=== PATIENT | male | born 1990 | race Caucasian/White ===

== ENCOUNTER 2020-07-08 16:23 | Emergency (ER) | payer OTHER ==
--- NOTE | 2020-07-08 17:07 | RAD REPORT ---
EXAM DESCRIPTION: CT - C[facility]CSP[facility]OC - 07/08/2020 4:46 pm CLINICAL HISTORY: PAIN, neck trauma, possible anoxic injury COMPARISON: No comparisons TECHNIQUE: Axial 5 mm thick images of the head were obtained. Axial 2 mm thick images of the cervic al spine were obtained with sagittal and coronal reconstruction images generated and reviewed. All CT scans are performed using dose optimization technique as appropriate and may include automated exposure control or mA/KV adjustment according to patient size. FINDINGS: No cerebral edema. Ferreira matter - white matter junction is preserved. No suspicion for anox ic brain injury. No hemorrhage, mass or edema. No acute infarction changes seen. No extra-axial fluid collections. Mastoid air cells and paranasal sinuses are clear. No globe or orbit abnormality seen. Cervical body height and alignment are normal. No disk space narrowing. No fracture or acute bony abn ormality. Central canal detail is inherently limited. No paraspinal mass or hematoma. Trace amount of congestion or edema is seen in the subcutaneous fatty tissues superficial to the platysma anterior neck. IMPRESSION: Negative CT head examination for acute or significant finding. Negative CT cervical spine examination for acute or significant finding.
--- NOTE | 2020-07-08 17:37 | ER ---
Nurse's Notes [facility] Name: Rule Barrientos Age: 30 yrs Sex: Male : 1990 Arrival Date: 07/08/2020 Time: 16:27 Bed 23 Private MD: Diagnosis: Neck pain;Hanging;Suicide attempt Presentation: 07/08 16:30 Chief complaint: EMS states: BIBA: pt attempted suicide by hanging with a bedsheet. Pt ks7 c/o cervical neck pain 5/10. Pt placed in c-collar by assisted. aaox4. Coronavirus screen: Client denies travel out of the [place] in the last 14 days. At this time, the client does not indicate any symptoms associated with coronavirus-19. The client reports previous COVID testing was negative. Date of collection: July 09, 2020. Ebola Screen: Patient negative for fever greater than or equal to 101.5 degrees Fahrenheit, and additional compatible Ebola Virus Disease symptoms Patient denies exposure to infectious person. Patient denies travel to an Ebola-affected area in the 21 days before illness onset. Initial Sepsis Screen: Does the patient meet any 2 criteria? No. Patient's initial sepsis screen is negative. Does the patient have a suspected source of infection? No. Patient's initial sepsis screen is negative. Risk Assessment: Do you want to hurt yourself or someone else? Patient reports desire/thoughts of hurting themselves or someone else. Provider notified. Other: pt with hx of depression and past suicide attempt, attempted to hang himself with a sheet approx 1515 today. Onset of symptoms was July 08, 2020. Care prior to arrival: c-collar. Mechanism of Injury: Hanging by bedsheet Hanging details: in assisted. pt states he had LOC, pt kneeled with sheet wrapped around neck, found on ground breathing, by assisted staff. 16:30 Method Of Arrival: EMS: [facility] ks7 16:30 Acuity: EDWIGE 3 ks7 Triage Assessment: 16:37 General: Appears in no apparent distress. Behavior is cooperative, flat. Pain: ks7 Complains of pain in neck and back of neck Pain currently is 5 out of 10 on a pain scale. Quality of pain is described as aching, tender, Pain began 1 hour ago. Is continuous, Alleviated by rest, Aggravated by repositioning, palpation. Neuro: No deficits noted. Musculoskeletal: Tenderness present in neck and back of neck Reports pain in neck and back of neck. Historical: - Allergies: 16:37 No Known Allergies; ks7 - Home Meds: 16:37 Prozac Oral for Major Depressive Disorder [Active]; ks7 - PMHx: 16:37 Depression; ks7 - PSHx: 16:37 None; ks7 - Immunization history:: Adult Immunizations unknown. - Social history:: Smoking status: Patient denies any tobacco usage or history of. Screenin:40 Abuse screen: Denies threats or abuse. Denies injuries from another. Nutritional ks7 screening: No deficits noted. Tuberculosis screening: No symptoms or risk factors identified. Fall Risk None identified. Assessment: 16:40 Reassessment: see triage assessment. General: Appears in no apparent distress. Behavior ks7 is cooperative. 17:55 Reassessment: Patient appears in no apparent distress at this time. Patient and/or iw family updated on plan of care and expected duration. Pain level reassessed. Patient is alert, oriented x 3, equal unlabored respirations, skin warm/dry/pink. Patient states feeling better. Patient states symptoms have improved. Vital Signs: 16:28 BP 148 / 86; Pulse 88; Resp 26; Temp 97.7(O); Pulse Ox 98% on R/A; Weight 83.91 kg; ks7 Height 5 ft. 9 in. (175.26 cm); Pain 5/10; 16:54 BP 127 / 83; Pulse 73; Resp 18; Pulse Ox 97% on 3 lpm NC; Pain 5/10; ks7 16:28 Body Mass Index 27.32 (83.91 kg, 175.26 cm) ks7 ED Course: 16:27 Patient arrived in ED. iw 16:28 Destiney Bah, SAMIR is Primary Nurse. ks7 16:28 Walt Torrez MD is Attending Physician. kdr 16:28 Arm band placed on left wrist. ks7 16:35 Triage completed. ks7 16:40 Resting quietly. Patient moved to CT. ks7 16:40 Patient has correct armband on for positive identification. Bed in low position. Call ks7 light in reach. Side rails up X2. Security at bedside. Patient is placed in psych hold. 16:40 No provider procedures requiring assistance completed. ks7 16:[address] moved [address] from [address]. ks7 17:55 Patient did not have IV access during this emergency room visit. iw Administered Medications: No medications were administered Outcome: 17:37 Discharge ordered by . kdr 17:55 Discharged to Law Enforcement iw 17:55 Condition: good 17:55 Discharge instructions given to patient, Instructed on discharge instructions, Demonstrated understanding of instructions. 17:56 Patient left the ED. iw Signatures: Walt Torrez MD MD kdr Lisa Rhodes RN RN iw Destiney Bah, SAMIR RN ks7
--- NOTE | 2020-07-08 17:37 | EDPHYS ---
Physician Documentation [facility] [place], [place] Name: Ruel Barrientos Age: 30 yrs Sex: Male : 1990 Arrival Date: 07/08/2020 Time: 16:27 Bed 23 Private MD: ED Physician Walt Torrez HPI: 07/08 16:50 This 30 yrs old Male presents to ER via EMS with complaints of self harm - kdr hanging with a sheet. 16:50 The patient or guardian complains of decreased range of motion, an injury, pain, that kdr is acute. The symptoms are located on the thyroid cartilage. Onset: The symptoms/episode began/occurred acutely, just prior to arrival. Context: The problem was sustained at a Skilled Nursing, The neck injury/problem resulted from Attempted to hang himself with a bedsheet. Associated signs and symptoms: Pertinent positives: This patient does not have any pertinent positive signs or symptoms associated with neck pain. Pertinent negatives: chills, constipation, fever, headache, bowel incontinence, nausea, numbness, tingling. The pain does not radiate. Modifying factors: The symptoms are alleviated by nothing. the symptoms are aggravated by nothing. Severity of symptoms: At their worst the symptoms were mild, in the emergency department the symptoms are unchanged. The patient has not experienced similar symptoms in the past. The patient has not recently seen a physician. Historical: - Allergies: 16:37 No Known Allergies; ks7 - Home Meds: 16:37 Prozac Oral for Major Depressive Disorder [Active]; ks7 - PMHx: 16:37 Depression; ks7 - PSHx: 16:37 None; ks7 - Immunization history:: Adult Immunizations unknown. - Social history:: Smoking status: Patient denies any tobacco usage or history of. ROS: 16:50 Constitutional: Negative for fever, chills, and weight loss, Eyes: Negative for injury, kdr pain, redness, and discharge, ENT: Negative for injury, pain, and discharge, Cardiovascular: Negative for chest pain, palpitations, and edema, Respiratory: Negative for shortness of breath, cough, wheezing, and pleuritic chest pain, Abdomen/GI: Negative for abdominal pain, nausea, vomiting, diarrhea, and constipation, Back: Negative for injury and pain, : Negative for injury, bleeding, discharge, and swelling, MS/Extremity: Negative for injury and deformity, Skin: Negative for injury, rash, and discoloration, Neuro: Negative for headache, weakness, numbness, tingling, and seizure activity. Allergy/Immunology: Negative for hives, rash, and allergies, Endocrine: Negative for neck swelling, polydipsia, polyuria, polyphagia, and marked weight changes, Hematologic/Lymphatic: Negative for swollen nodes, abnormal bleeding, and unusual bruising. 16:50 Psych: Positive for depression, suicide gesture. Exam: 16:50 Constitutional: This is a well developed, well nourished patient who is awake, alert, kdr and in no acute distress. Head/Face: Normocephalic, atraumatic. Eyes: Pupils equal round and reactive to light, extra-ocular motions intact. Lids and lashes normal. Conjunctiva and sclera are non-icteric and not injected. Cornea within normal limits. Periorbital areas with no swelling, redness, or edema. 16:50 Neck: External neck: C-spine: appears grossly normal, C-collar placed [employer], Thyroid: Trachea: no acute changes, Anterior neck is tender to palp bu no obvious injury. Vital Signs: 16:28 BP 148 / 86; Pulse 88; Resp 26; Temp 97.7(O); Pulse Ox 98% on R/A; Weight 83.91 kg; ks7 Height 5 ft. 9 in. (175.26 cm); Pain 5/10; 16:54 BP 127 / 83; Pulse 73; Resp 18; Pulse Ox 97% on 3 lpm NC; Pain 5/10; ks7 16:28 Body Mass Index 27.32 (83.91 kg, 175.26 cm) ks7 MDM: 16:50 Data reviewed: vital signs, nurses notes, radiologic studies. Counseling: I had a kdr detailed discussion with the patient and/or guardian regarding: the historical points, exam findings, and any diagnostic results supporting the discharge/admit diagnosis, radiology results, the need for outpatient follow up. 17:37 Patient medically screened. kdr 07/08 16:34 Order name: CT Head C Spine kdr 07/08 17:08 Order name: CT; Complete Time: 17:34 EDMS Administered Medications: No medications were administered Disposition: 07/08/20 17:37 Discharged to Home. Impression: Neck pain, Hanging, Suicide attempt. - Condition is Stable. - Discharge Instructions: Suicidal Feelings: How to Help Yourself, Cervical Sprain, [id number]. - Prescriptions for Ibuprofen 600 mg Oral Tablet - take 1 tablet by ORAL route every 6 hours As needed take with food; 15 tablet. - Medication Reconciliation Form, Thank You Letter form. - Follow up: Private Physician; When: 2 - 3 days; Reason: If symptoms return, Further diagnostic work-up, Recheck today's complaints, Continuance of care, Re-evaluation by your physician. - Problem is new. - Symptoms have improved. Signatures: Dispatcher [employer] EDMS Walt Torrez MD MD kdr Lisa Rhodes RN RN iw Destiney Bah RN RN ks7 Corrections: (The following items were deleted from the chart) 17:56 17:37 07/08/2020 17:37 Discharged to Home. Impression: Neck pain; Hanging; Suicide iw attempt. Condition is Stable. Forms are Medication Reconciliation Form, Thank You Letter, Antibiotic Education, Prescription Opioid Use. Follow up: Private Physician; When: 2 - 3 days; Reason: If symptoms return, Further diagnostic work-up, Recheck today's complaints, Continuance of care, Re-evaluation by your physician. Problem is new. Symptoms have improved. kdr
[2020-07-08 18:07] VITALS: TEMP 97.7
[2020-07-08 18:09] VITALS: BP 127/83; O2SAT 97
== END 2020-07-08 17:56 | disposition home or self-care (01) ==
LOC: ER 16:23
DX: S19.9XXA Unspecified injury of neck, initial encounter (principal); F32.9 Major depressive disorder, single episode, unspecified; X83.8XXA Intentional self-harm by other specified means, initial encounter; Y93.89 Activity, other specified; Y92.149 Unspecified place in prison as the place of occurrence of the external cause
CPT/HCPCS: 70450; 72125; 99284